=== PATIENT | female | born 1980 | race African-American/Black ===

== ENCOUNTER 2020-09-21 07:02 | Day surgery (SDC) | payer OTHER, SELFPAY ==
[~2020-09-21] VITALS: Ht 157.5 cm; Wt 108.9 kg
[2020-09-21] MEDS ORDERED: MIDAZOLAM 5 MG/5 ML VIAL ONE (08:26)
[2020-09-21] MEDS ORDERED: diphenhydrAMINE 50 MG/ML VIAL ONE (08:26)
[2020-09-21] MEDS ORDERED: fentaNYL citrate 0.05 MG/ML VIAL ONE (08:26)
[2020-09-21] MEDS ORDERED: LIDOCAINE 2% 100 MG/5 ML UJET TP ONE (08:27)
[2020-09-21] MEDS ORDERED: fentaNYL citrate 0.05 MG/ML VIAL IVP ONE ×2 (09:20→13:15)
[2020-09-21] MEDS ORDERED: MIDAZOLAM 2 MG/2 ML VIAL IVP ONE ×2 (09:20→13:15)
== END 2020-09-21 10:20 | disposition home or self-care (01) ==
LOC: MMU 07:02 → MDS 07:02
PROVIDERS: ATTEND Internal Medicine Gastroenterology
DX: K62.5 Hemorrhage of anus and rectum (principal); I10 Essential (primary) hypertension; Z79.899 Other long term (current) drug therapy
CPT/HCPCS: 45378; 87426; J2250; J3010; J1200